=== PATIENT | female | born 1985 | race Caucasian/White ===

== ENCOUNTER 2016-11-10 03:32 | Inpatient (IN) | payer MEDICAID ==
[~2016-11-10] VITALS: Ht 167.6 cm; Wt 78.9 kg
[~2016-11-10 03:32] MED LIST: OXYC1SOL5 PO; PERI8.6T PO
[2016-11-10] MEDS ORDERED: LACTATED RINGER'S 1000 ML INJ 1,000 ML IV SCH (05:17)
[2016-11-10] MEDS ORDERED: LACTATED RINGER'S 1000 ML INJ 1,000 ML IV PRN (05:17)
[2016-11-10] MEDS ORDERED: OXYTOCIN 30 UNITS-500ML PREMIX 500 ML IV ONE (05:30)
[2016-11-10] MEDS ORDERED: LIDOCAINE HCL 1% 50 ML VIAL I-DERMAL PRN (05:30)
[2016-11-10] MEDS ORDERED: SODIUM CHLORID 0.9% 500 ML INJ 500 ML IV PRN (05:30)
[2016-11-10] MEDS ORDERED: CITRIC ACID-SODIUM CITRATE LIQ 30 ML UDC PO SCH (05:30)
[2016-11-10] MEDS ORDERED: MINERAL OIL 10 ML VIAL TOPICAL PRN (05:30)
[2016-11-10] MEDS ORDERED: LIDOCAINE HCL 1% 50 ML VIAL INFIL PRN (05:30)
[2016-11-10] MEDS ORDERED: SODIUM CHLOR 0.9% 1000 ML INJ 1,000 ML IV PRN (05:37)
[2016-11-10] MEDS ORDERED: TUMS500C CHEW (05:45)
--- NOTE | 2016-11-10 05:48 | HHI.HP ---
HPI Chief Complaint Contractions Date Seen: Nov 10, 2016 Time Seen: 05:20 Travel History International Travel<30 Days: No Contact w/Intl Traveler<30Days: No Known Affected Area: No History of Present Illness HPI 31-year-old G6. 30-3 at 39 weeks and 4 days of gestation, EDC 11/13/16, patient presents to labor and delivery complaining of frequent contractions occurring every 5 minutes, she denies leakage of fluids, vaginal bleeding. She reports presence of movements. care is with Dr. Sagastume. course is unremarkable. Vaginal exam shows cervix is 4 cm, 80%, -2 and patient is karol irregularly patient also had a variable deceleration while in the OB ED down to the 70s for 1 minute with good recovery to the baseline. Para: 3 : 6 Miscarriage: 2 : 0 History Past Medical History Narrative Medical Denies Obstetric History Obstetric History Spontaneous vaginal delivery 3, spontaneous 2 Past Surgical History Narrative Surgical Dilatation and curettage 2 Family History Narrative Family History Mother has atrial fibrillation and heart disease Social History Alcohol Use: No Tobacco Use: Yes (patient smokes half a pack of cigarettes a day) Substance Abuse: No Allergies-Medications (Allergen,Severity, Reaction): Coded Allergies: Clindamycin (Verified Allergy, Unknown, 09/30/15) Ibuprofen (Verified Allergy, Unknown, 09/30/15) Omnicef (Verified Allergy, Unknown, 09/30/15) Penicillin (Verified Allergy, Unknown, 09/30/15) Zithromax (Verified Allergy, Unknown, 09/30/15) Home Meds Active Scripts Sennosides-Docusate Sodium (Amelia-Colace 8.6-50 mg)1 Tab Tab2 Tab PO Q12H PRN ( CONSTIPATION) #28 TAB Ref 1 Prov:Mya Coleman MD 10/03/15 Oxycodone W/ Acetaminophen (Oxycodone/Acetaminophen 5-325 mg/5Ml)1 Tab Tab1 Tab PO Q4H PRN (PAIN SCALE 1 TO 4) #20 TAB Ref 0 Prov:Mya Coleman MD 10/03/15 Review of Systems Except as stated in HPI: all other systems reviewed are Neg Genitourinary: Other (contractions) Physical Exam Narrative GENERAL: Well-nourished, well-developed patient. SKIN: Warm and dry. HEAD: Normocephalic and atraumatic. EYES: No scleral icterus. No injection or drainage. ENT: No nasal drainage noted. Mucous membranes pink. Airway patent. NECK: Supple, trachea midline. No JVD. CARDIOVASCULAR: Regular rate and rhythm without murmurs, gallops, or rubs. RESPIRATORY: Breath sounds equal bilaterally. No accessory muscle use. BREASTS: Bilateral exam showed no masses , no retractions, no nipple discharge. ABDOMEN/GI: Abdomen soft, gravid, non-tender, bowel sounds present, no rebound, no guarding Gravid to 39 weeks size Fundal Height: 39 cm GENITOURINARY: External Genitalia: intact and normal in appearance BUS glands: Normal Cervix: 4 cm, 80%, -2, anterior Dilatation: 4 cm Effacement: 80% Station: -2 Presentation: Cephalic Membranes: Intact Uterine Contractions: Irregular FHT's: Category: one Baseline: 130s Reactive: Yes Variability: Moderate Decels: Variable decelerations is noted EXTREMITIES: No cyanosis or edema. BACK: Nontender without obvious deformity. No CVA tenderness. NEUROLOGICAL: Awake and alert. Motor and sensory grossly within normal limits. Five out of 5 muscle strength in all muscle groups. Normal speech. Data Data Vital Signs Reviewed: Yes Orders Admit To Inpatient (11/10/16 ) Code Status (11/10/16 05:17) Vital Signs (Adult) .Per protocol (11/10/16 05:17) Activity Oob Ad Machelle (11/10/16 05:17) ^ Heart (11/10/16 05:17) ^ Amnioinfusion (11/10/16 05:17) Urinary Catheter Management .ONCE (11/10/16 05:17) Diet Npo (11/10/16 Breakfast) Lactated Ringer's 1000 Ml Inj (Lr 1000 M (11/10/16 05:17) Lactated Ringer's 1000 Ml Inj (Lr 1000 M (11/10/16 05:17) Sodium Chlorid 0.9% 500 Ml Inj (Ns 500 M (11/10/16 05:30) Sodium Chlor 0.9% 1000 Ml Inj (Ns 1000 M (11/10/16 05:37) Lidocaine 1% Inj (50 Ml) (Xylocaine 1% I (11/10/16 05:30) Citric Acid-Sodium Citrate Liq (Bicitra (11/10/16 05:30) Fentanyl Inj (Fentanyl Inj) (11/10/16 05:30) Fentanyl Inj (Fentanyl Inj) (11/10/16 05:30) Cefazolin 2 Gm Premix (Ancef 2 Gm Premix (11/10/16 06:00) Complete Blood Count With Diff (11/10/16 05:17) Hold Clot (11/10/16 05:17) Abo/Rh Blood Type (11/10/16 05:17) Urinalysis - C+S If Indicated (11/10/16 05:17) Type And Screen (11/10/16 05:17) Resp Oxygen Non Rebreathe Mask (11/10/16 ) ^ Epidural / Intrathecal Infus (11/10/16 05:17) Oxytocin 30 Units-500ml Premix (Pitocin (11/10/16 05:30) Lidocaine 1% Inj (50 Ml) (Xylocaine 1% I (11/10/16 05:30) Light Mineral Oil (Muri-Lube Oil) (11/10/16 05:30) Inpatient Certification (11/10/16 ) Ob (2e) Additional Admit Info (11/10/16 05:22) Assessment/Plan Problem List: (1) 39 weeks gestation of (2) Normal labor Assessment and Plan Term at 39 weeks and 4 days of gestation in active labor, reassuring heart status, GBS is positive. 1. Active labor * Admit patient to labor and delivery * Keep patient nothing by mouth * IV fluid hydration * Sent admission blood work * Continuous heart monitoring * Patient may have IV pain medications or epidural for pain management * Monitor progress of labor * Anticipate vaginal delivery 2. GBS positive * We'll give antibiotics for GBS prophylaxis Discharge Planning We'll discharge patient to home in 2-3 days after delivery Bulmaro Johnston MD Nov 10, 2016 05:48
[2016-11-10] MEDS ORDERED: fentaNYL 2MCG-BUPIV 0.125% INJ 100 ML ONE (05:59)
[2016-11-10] MEDS ORDERED: ceFAZolin 2 GM PREMIX 50 ML IV SCH (06:00)
[2016-11-10 06:12] LABS: AUTOMATED NEUTROPHIL # 8.4 TH/MM3 (1.8-7.7); BASOPHIL # 0.1 TH/MM3 (0-0.2); BASOPHIL % 0.6 % (0.0-2.0); EOSINOPHIL # 0.2 TH/MM3 (0-0.4); EOSINOPHIL % 1.7 % (0.0-4.0); HEMATOCRIT 31.7 % (35.0-46.0); HEMO FLAGS DIFF FINAL; LYMPH % 24.2 % (9.0-44.0); MEAN CELL VOLUME 87.3 FL (80.0-100.0); MEAN CORPUSCULAR HEMOGLOBIN 30.3 PG (27.0-34.0); MEAN CORPUSCULAR HGB CONC 34.7 % (32.0-36.0); MONO % 5.5 % (0.0-8.0); PLATELET COUNT 278 TH/MM3 (150-450); RED BLOOD COUNT 3.63 MIL/MM3 (4.00-5.30); RED CELL DISTRIBUTION WIDTH 14.2 % (11.6-17.2); WHITE BLOOD COUNT 12.4 TH/MM3 (4.0-11.0)
[2016-11-10 06:53] LABS: BLOOD, URINE NEG (NEG); COMMENT (UR) CULT NOT INDICATED; CULTURE IF INDICATED CULT NOT INDICATED; GLUCOSE,URINE NEG (NEG); KETONE, URINE NEG (NEG); MUCUS URINE FEW /lpf (OCC); NITRITE,URINE NEG (NEG); SQUAMOUS EPITHELIAL CELL URINE 3 /hpf (0-5); URINE COLOR YELLOW (YELLW/STRAW)
[2016-11-10] MEDS ORDERED: OXYTOCIN 30 UNITS-500ML PREMIX 500 ML IV SCH (07:15)
[2016-11-10] MEDS ORDERED: NO SYSTEM NARCOTICS XX PRN (07:15)
[2016-11-10] MEDS ORDERED: fentaNYL 2MCG-BUPIV 0.125% INJ 100 ML EPIDURAL SCH (07:15)
[2016-11-10] MEDS ORDERED: ePHEDrine/NS 50 MG/5 ML SYR IV PRN (07:15)
[2016-11-10] MEDS ORDERED: DO NOT ADMINISTER ANTICOAGULANTS XX PRN (07:15)
--- NOTE | 2016-11-10 12:54 | PD.OB.DELI ---
Delivery Date: Nov 10, 2016 Anesthesia: Epidural Episiotomy: None Vaginal Delivery: Normal Presentation: Occiput anterior Nuchal Cord: x1 (tight, double clamped and cut at perineum) : Male One Minute : 8 Five Minute : 9 Weight: pending Infant Care: Spontaneous crying Placenta: Spontaneous delivery Laceration: No lacerations Additional Information ebl 200ml Afia Hair MD Nov 10, 2016 12:54
[2016-11-10] MEDS ORDERED: ALUMINUM/MAGNESIUM/SIMETH 30 ML CUP PO PRN (13:00)
[2016-11-10] MEDS ORDERED: ZOLPIDEM TARTRATE 5 MG TAB PO PRN (13:00)
[2016-11-10] MEDS ORDERED: ONDANSETRON ODT 4 MG TAB PO PRN (13:00)
[2016-11-10] MEDS ORDERED: BENZOCAINE 20% TOPICAL SPRAY 60 ML CAN TOPICAL PRN (13:00)
[2016-11-10] MEDS ORDERED: SODIUM CHLORIDE 0.9% FLUSH 5 ML FLUSH IV PRN (13:00)
[2016-11-10] MEDS ORDERED: DOCUSATE SODIUM 50 MG/SENNA 8.6 MG TAB PO PRN (13:00)
[2016-11-10] MEDS ORDERED: WITCH HAZEL 50%/GLYCERIN 12.5% 40 PAD JAR TOPICAL PRN (13:00)
[2016-11-10] MEDS ORDERED: DIPHTH/TETANUS/ACEL PERTUSSIS (BOOSTER) 0.5 ML VIAL/PFS IM ONE (16:00)
[2016-11-10] MEDS ORDERED: MEASLES, MUMPS, RUBELLA VACCINE 0.5 ML VIAL SQ ONE (16:00)
--- NOTE | 2016-11-10 16:44 | HHI.DCPOC ---
Discharge Care Plan Diagnosis: (1) (normal spontaneous vaginal delivery) Your Health Problems Are: Vaginal delivery Report Symptoms to Your Doctor -Temperate above 100.5 degrees -Redness, of incision or excessive or foul smelling drainage -Unusual pain or calf pain -Increased vaginal bleeding -Painful or difficulty urinating -Feelings of extreme sadness or anxiety after 2 weeks Goals to Promote Your Health * To prevent worsening of your condition and complications * To maintain your health at the optimal level Directions to Meet Your Goals Take your medications as prescribed Follow your dietary instruction Follow activity as directed Ensure plenty of rest for recovery Drink fluids for hydration Keep your appointments as scheduled Take your immunizations and boosters as scheduled If your symptoms worsen call your PCP, if no PCP go to Urgent Care Center or Emergency Room Smoking is Dangerous to Your Health. Avoid second hand smoke Call the 24-hour crisis hotline for domestic abuse at Afia Hair MD Nov 10, 2016 16:43
[2016-11-10] MEDS ORDERED: SODIUM CHLORIDE 0.9% FLUSH 5 ML FLUSH IV SCH (21:00)
[2016-11-10] MEDS: oxyCODONE/ACETAMINOPHEN 5 MG/325 MG TAB PO PRN (22:50)
[2016-11-11] MEDS: ACETAMINOPHEN 325 MG TAB PO PRN ×2 (03:44→17:02)
--- NOTE | 2016-11-11 08:25 | HHI.OB ---
Subjective Post Day: 1 Remarks doing well, some cramping, mod lochia Objective Vitals/I&O BP 95/69 Objective Remarks GENERAL: Well-nourished, well-developed patient. CARDIOVASCULAR: Regular rate and rhythm without murmurs, gallops, or rubs. RESPIRATORY: Breath sounds equal bilaterally. No accessory muscle use. ABDOMEN/GI: Abdomen soft, non-tender. Fundus: Firm, non-tender at umbilicus. GENITOURINARY: Light to moderate bleeding. EXTREMITIES: No cyanosis or edema, non-tender, without signs of DVT. Medications and IVs Current Medications Medications (Trade) Dose Ordered Sig/Elaine Route Start Time Stop Time Status Last Admin (NS Flush) 2 ml BID IV 11/10/16 21:00 (NS Flush) 2 ml UNSCH PRN IV 11/10/16 13:00 (Tylenol) 650 mg Q4H PRN PO 11/10/16 13:00 11/11/16 03:44 (Percocet 5-325 Mg) 1 tab Q4H PRN PO 11/10/16 13:00 11/10/16 22:50 (Americaine 20% Top Spr) 1 spray Q4H PRN TOPICAL 11/10/16 13:00 (Tucks Pads) 1 applic QID PRN TOPICAL 11/10/16 13:00 (Amelia-Colace) 2 tab Q12H PRN PO 11/10/16 13:00 (Ambien) 5 mg HS PRN PO 11/10/16 13:00 (Mag-Al Plus Susp Liq) 15 ml Q8H PRN PO 11/10/16 13:00 (Zofran Odt) 4 mg Q6H PRN PO 11/10/16 13:00 Assessment/Plan Problem List: (1) (normal spontaneous vaginal delivery) Assessment and Plan ppd1 cont routine care [facility] will f/u in 2-3 wk to schedule btl Discharge Planning ppd 2 Afia Hair MD Nov 11, 2016 08:25
[2016-11-11] MEDS: oxyCODONE/ACETAMINOPHEN 5 MG/325 MG TAB PO PRN ×2 (10:25→23:36)
[2016-11-11] MEDS ORDERED: ACET325T PO (10:35)
--- NOTE | 2016-11-12 07:56 | HHI.OB ---
Subjective Post Day: 2 Remarks s/p FT Objective Objective Remarks GENERAL: Well-nourished, well-developed patient. CARDIOVASCULAR: Regular rate and rhythm without murmurs, gallops, or rubs. RESPIRATORY: Breath sounds equal bilaterally. No accessory muscle use. ABDOMEN/GI: Abdomen soft, non-tender. Fundus: Firm, non-tender at umbilicus. GENITOURINARY: Light bleeding. EXTREMITIES: No cyanosis or edema, non-tender, without signs of DVT. Medications and IVs Current Medications Medications (Trade) Dose Ordered Sig/Elaine Route Start Time Stop Time Status Last Admin (NS Flush) 2 ml BID IV 11/10/16 21:00 (NS Flush) 2 ml UNSCH PRN IV 11/10/16 13:00 (Tylenol) 650 mg Q4H PRN PO 11/10/16 13:00 11/11/16 17:02 (Percocet 5-325 Mg) 1 tab Q4H PRN PO 11/10/16 13:00 11/11/16 23:36 (Americaine 20% Top Spr) 1 spray Q4H PRN TOPICAL 11/10/16 13:00 11/11/16 10:25 (Tucks Pads) 1 applic QID PRN TOPICAL 11/10/16 13:00 11/11/16 10:25 (Amelia-Colace) 2 tab Q12H PRN PO 11/10/16 13:00 11/11/16 10:25 (Ambien) 5 mg HS PRN PO 11/10/16 13:00 (Mag-Al Plus Susp Liq) 15 ml Q8H PRN PO 11/10/16 13:00 (Zofran Odt) 4 mg Q6H PRN PO 11/10/16 13:00 Assessment/Plan Problem List: (1) (normal spontaneous vaginal delivery) Assessment and Plan ppd2 cont routine care, d/c to home today UDF; plan visit with Dr. Hair in 2-3 wk to schedule btl Discharge Planning routine, today Mya Coleman MD Nov 12, 2016 07:56
== END 2016-11-12 12:46 | disposition home or self-care (01) | DRG 775 ==
LOC: HOBED 03:32 → H2EB 05:23 → H1EA 17:14
PROVIDERS: ADMIT Obstetrics & Gynecology; ATTEND Obstetrics & Gynecology
PROC: 10E0XZZ Delivery of Products of Conception, External Approach (ICD-10-PCS; principal; 2016-11-10)
PROC: 00HU33Z Insertion of Infusion Device into Spinal Canal, Percutaneous Approach (ICD-10-PCS; 2016-11-10)
PROC: 3E0R3CZ (ICD-10-PCS; 2016-11-10)
DX: O99.334 Smoking (tobacco) complicating childbirth (principal); F17.210 Nicotine dependence, cigarettes, uncomplicated; O99.824 Streptococcus B carrier state complicating childbirth; Z3A.39 39 weeks gestation of pregnancy; O69.1XX0 Labor and delivery complicated by cord around neck, with compression, not applicable or unspecified; Z37.0 Single live birth
CPT/HCPCS: 81001; 85025; 86850; 86900; 86901; 99285; J0690; J2590; J7120

== ENCOUNTER → 2016-12-25 | Day surgery (SDC) | payer MEDICAID ==
[~2016-12-25] MED LIST changes: +ACET325T PO; +BUPIVACAINE/EPINEPHRINE 0.25% PF 30 ML VIAL ONE; +KETOROLAC TROMETHAMINE 30 MG/ML (IVP) VIAL IV PUSH ONE; +LACTATED RINGER'S 1000 ML INJ 1,000 ML ONE; +ONDANSETRON HCL 4 MG/2 ML VIAL IV PUSH ONE; -OXYC1SOL5 PO; -PERI8.6T PO; +PROPOFOL 200 MG/20 ML AMP IV ONE; +TUMS500C CHEW; +ceFAZolin INJ 1,000 MG VIAL ONE; +oxyCODONE/ACETAMINOPHEN 5 MG/325 MG TAB ONE
--- NOTE | 2016-12-26 18:07 | MP ---
cc: MICHELLE HAIR MD DATE OF SURGERY 12/25/2016 PREOPERATIVE DIAGNOSIS Undesired fertility. POSTOPERATIVE DIAGNOSIS Undesired fertility PROCEDURE PERFORMED Laparoscopic sterilization via bilateral salpingectomy. INDICATIONS The patient is a 31-year old multi gravid female with no further desired fertility. The risks, benefits, alternatives discussed with the patient including LARC and she desires to proceed with surgery. Aware of 1% risk of failure and ectopic risk. SURGEON Ade Hair MD [employer] ANESTHESIA LMA. ESTIMATED BLOOD LOSS Minimal. IV FLUIDS LR 700 mL URINE OUTPUT 75 mL COMPLICATIONS None. COUNTS Correct. SPECIMEN Bilateral fallopian tubes. PROPHYLAXIS Antibiotic Ancef 1 gram IV given pre-incision. DVT prophylaxis. SCDs to bilateral lower extremities INTRAOPERATIVE FINDINGS Uterus approximately 7 cm in size, normal tubes and ovaries bilaterally. Vaginal bleeding, patient on menses PROCEDURE NOTE After reviewing informed consent, the patient to operating room. General LMA was performed without complication. She was placed in dorsal lithotomy position in Ammon stirrups. The abdomen, perineum was prepped and draped in normal sterile fashion. An exam under anesthesia was performed. Uterus was approximately 7 cm anteverted. No adnexal masses appreciated. A bivalve speculum was placed in the vagina. A GANTEClka uterine manipulator was used. The speculum was removed. Of note, the bladder was drained with the red rubber catheter prior to commencing procedure. Attention was then turned to the abdomen after gloves were changed. A 5 mm umbilical fold incision was made with a scalpel after infusion of Marcaine 0.25% with epinephrine. Abdomen was tented and direct visual entry was performed. The abdomen was insufflated after abdominal placement was confirmed. A 5 mm suprapubic accessory port was also established under direct visualization. The abdominal survey was performed. See intraoperative findings. The right tube was identified and followed from the cornua towards the fimbriated end and removed with a harmonic. Good hemostasis was noted. The same was performed on the opposite side. The abdomen was then desufflated and the trocars were removed. 4-0 Vicryl was used to close skin incisions and Steri-Strips were placed subsequently. Speculum was placed in vagina. Hulka uterine manipulator was removed. Good hemostasis noted from tenaculum site. The fascia was then placed in supine position. Anesthesia was reversed without complication. The patient was taken to PACU. MD AKANKSHA Sage /12:21 PM /5:49 PM CAROLE
== END | disposition home or self-care (01) ==
LOC: ESDC 10:06
PROVIDERS: ATTEND Obstetrics & Gynecology
DX: Z30.2 Encounter for sterilization (principal)
CPT/HCPCS: 00840; 58661; 88302; J0690; J1885; J2405; J3010; J7120